=== PATIENT | female | born 1965 | race Caucasian/White ===

== ENCOUNTER 2021-08-30 11:15 | Inpatient (IN) | payer MEDICAID ==
[2021-08-30] MEDS: INSULIN LISPRO 100 UNIT/ML SUB-Q SCH (22:00)
--- NOTE | 2021-08-31 07:36 | History and Physical Report ---
GP History & Physical - History of Present Illness Date of admission: 08/30/21 Date of Examination: 08/31/21 Reason for Admission: Danger to self Chief Complaint: Delusional/paranoid/ off meds History of Present Illness: Marii Ceja is a 56 year old female with history of Bipolar, Schizophrenia who was admitted on 1012 from [facility] for delusions and paranoia. In my interview with the patient, the patient presents with some confusion and paranoid. The patient states " I'm spiritual counseling, if you force me to see psychiatrist I'll matty you and my transactional attorney knows it." When asked why she went to the ED she states I 'm here because I need my prescriptions; my daughter took me to the ED. Per Note: " The patient has been off medications for over a month and has been delusional and paranoid; patient's psychiatrist stopped her Zyprexa about a month ago stating she has been on it for too long." The patient denies any current suicidal/homicidal ideation and denies hallucinations. PAST PSYCHIATRIC HISTORY Diagnoses: Bipolar, Schizophrenia Suicide attempts or Self-harm behavior: Denies Prior psychiatric hospitalizations: Yes Substance Abuse history: Denies Previous psychiatric medications tried: Unable to recall Outpatient treatment: Denied SOCIAL HISTORY Marital Status: Living Arrangements: Lives with daughter Employment Status: Disabled Access to guns/weapons: SSI Education:GED History of Abuse: Denied Legal History: None reported REVIEW OF SYSTEMS Constitutional: Negative for weight loss ENT: Negative for stridor Respiratory: Negative for cough or hemoptysis All other systems reviewed and are negative MENTAL STATUS EXAMINATION General Appearance and Behavior: Age appropriate, dressed appropriately, calm and uncooperative Cooperation: cooperative Psychomotor Behavior: psychomotor normal Mood: angry/ paranoid Affect and affective range: congruent with stated mood Thought Process: disorganized Thought Content: Not suicidal Speech: Normal volume, Regular rate and rhythm, Intellectual Functioning: Average Suicidal Ideation:Denies Homicidal Ideation: denies Hallucinations:Denies Delusions: None elicited Impulse Control: Unimpaired Insight and Judgment: limited insight and poor judgment, Memory: Normal Attention: divided Orientation: Alert, oriented Assessment and Plan (1)Schizophrenia-F20.9 (2) Treatment Plan Patient admitted for inpatient psychiatric evaluation, medication adjustment and close monitoring The patient's behavior, mood, sleep and appetite will be closely monitored. Patient enrolled in individual and group therapeutic sessions and encouraged to attend. Patient provided with a safe and structured environment. Patient's physical health needs will be addressed by the Hospitalist. Hospitalist Consulted Labs including CBC, CMP, Lipid profile and Hemoglobin A1C levels ordered for baseline reference Social Assessment will be completed and the Plane Tableman will work with patient and family to ensure a suitable and safe disposition Medication adjustment will be made as clinically indicated Restarted home meds Usual Wellness Anabaptist/Preservation: - Start Trazodone 50 mg po QHS & 50 mg po QHS PRN between 10 PM & 2 AM for insomnia - Start Melatonin 5 mg po QHS to promote circadian rhythm The patient agreed on the treatment plan, understood the risk, benefit, alternative treatment, potential consequence of no treatment, and gave informed consent. Estimated days: 7 Post hospital care: primary care provider, psychiatric provider Case staffed with Dr. Holbrook Medications and Allergies Medications and Allergies Allergies Allergy/AdvReac Type Severity Reaction Status Date / Time No Known Allergies Allergy Unverified 08/30/21 13:37 Home Medications Medication Instructions Recorded Confirmed Last Taken Type Atorvastatin [Lipitor Tab] 40 mg PO DAILY 08/31/21 08/31/21 Unknown History Insulin Glargine [Lantus VIAL] 40 units SUB-Q QHS 08/31/21 08/31/21 Unknown History Liraglutide 1.8 mg SUB-Q DAILY 08/31/21 08/31/21 Unknown History Metformin (Glucophage) 850 mg PO BID 08/31/21 08/31/21 Unknown History Metoprolol [Lopressor TAB] 50 mg PO BID 08/31/21 08/31/21 Unknown History Omeprazole Magnesium [PriLOSEC Otc] 40 mg PO QDAY 08/31/21 08/31/21 Unknown History Active Meds: Active Medications Insulin Human Lispro (Insulin Lispro 100 Unit/Ml) 0 unit SUB-Q [facility]; Protocol Last Admin: 08/30/21 22:00 Dose: 3 unit Documented by: Results - Results Labs/Vitals: Laboratory Last Values POC Glucose 281 mg/dL (70-105) H 08/31/21 07:08 Last Vital Signs Temp 99.3 F 08/30/21 22:00 Pulse 92 H 08/30/21 22:00 Resp 18 08/30/21 22:00 BP 136/93 08/30/21 22:00 Pulse Ox 97 08/30/21 22:00 Physical Examination - Constitutional Vitals: Vital Signs Temp Pulse Resp BP Pulse Ox 99.3 F 92 H 18 136/93 97 08/30/21 22:00 08/30/21 22:00 08/30/21 22:00 08/30/21 22:00 08/30/21 22:00 Temperature -Last 24 Hours Temperature 99.3 F Mental Status Exam - Vital signs Last Vital Signs Temp 99.3 F 08/30/21 22:00 Pulse 92 H 08/30/21 22:00 Resp 18 08/30/21 22:00 BP 136/93 08/30/21 22:00 Pulse Ox 97 08/30/21 22:00 Physician Certification - Certification Statement Physician Certification Statement: This is an acknowledgement statement that MARII CEJA is a 56 year old F who requires inpatient psychiatric admission for treatment which could reasonably be expected to improve the patient's condition for Estimated period of time patient will need to remain in the hospital: [ ] Plan for post-hospital care: [ ]
[2021-08-31] MEDS: INSULIN LISPRO 100 UNIT/ML SUB-Q SCH ×4 (08:24→21:35)
[2021-08-31] MEDS: metFORMIN 850 MG TAB PO SCH ×2 (08:25→19:59)
[2021-08-31] MEDS ORDERED: PANTOPRAZOLE 40 MG TAB PO SCH (10:00)
[2021-08-31] MEDS ORDERED: METFORMIN 850 MG PO SCH (10:00)
[2021-08-31] MEDS ORDERED: LIRAGLUTIDE 1.8 MG SUB-Q SCH (10:00)
[2021-08-31] MEDS ORDERED: NON-FORMULARY EACH (Omeprazole Magnesium [Prilosec Otc] 20 MG Tablet.Dr) PO SCH (10:00)
[2021-08-31] MEDS ORDERED: ACETAMINOPHEN 325 MG TAB PO PRN (11:00)
[2021-08-31] MEDS: METOPROLOL TARTRATE 50 MG TAB PO SCH ×2 (11:16→21:35)
--- NOTE | 2021-08-31 13:27 | Progress Note ---
History Interval history: 56-year-old female with past medical history of type 2 diabetes and hypertension presenting with complaint of audio/visual hallucinations. Per documentation and patient, patient has been off of psychiatric medications for approximately 1 month. On my encounter patient did not have acute complaints except for headach e. She states that she gets tension headaches in the posterior aspect of her head periodically. She usually usually does Tylenol and her symptoms is[place]. Remainder of ROS negative for nausea/vomiting/diarrhea, chest pain, shortness of breath, abdominal pain, change in bowel habits, peripheral nerve pain. PMHx: Type 2 diabetes, hypertension PSHx: Tubal ligation FHx: Reviewed noncontributory SHx: Tobacco use-denies ETOH Use-denies Recreational Drug Use-denies Occupation-unemployed PCP-Dr. Zavala Hospitalist Physical - Physical exam Narrative exam: Physical Exam: VITAL SIGNS: Reviewed. GENERAL: The patient appears normally developed, Vital signs as documented. HEAD: No signs of head trauma. EYES: Pupils are equal. Extraocular motions intact. EARS: Hearing grossly intact. MOUTH: Oropharynx is normal. NECK: No adenopathy, no JVD. CHEST: Chest with clear breath sounds bilaterally. No wheezes, rales, or rhonchi. CARDIAC: Regular rate and rhythm. S1 and S2, without murmurs, gallops, or rubs. VASCULAR: No Edema. Peripheral pulses normal and equal in all extremities. ABDOMEN: Soft, non tender and non distended. No rebound or guarding, and no masses palpated. Bowel Sounds normal. MUSCULOSKELETAL: Good range of motion of all major joints. Extremities without clubbing, cyanosis or edema. NEUROLOGIC EXAM: Alert although orientation could not be verified as patient withdrawn no focal sensory or strength deficits. PSYCHIATRIC: Mood normal. SKIN: detail exam as documented in skin assessment - Constitutional Vitals: Temp Pulse Resp BP Pulse Ox 99.0 F 97 H 18 129/72 100 08/31/21 10:08 08/31/21 11:16 08/31/21 11:09 08/31/21 11:16 08/31/21 10:08 Results - Labs Labs: Laboratory Last Values POC Glucose 282 mg/dL (70-105) H 08/31/21 11:20 Zimmerman/IV: Voiding Method Toilet Active Medications - Current Medications Current Medications: Generic Name Dose Route Start Last Admin Trade Name Freq PRN Reason Stop Dose Admin Acetaminophen 650 mg 08/31/21 11:00 08/31/21 11:09 Acetaminophen 325 Mg Tab PO 650 mg Q6H PRN Administration Pain, Mild (1-3) Atorvastatin Calcium 40 mg 08/31/21 22:00 Atorvastatin 40 Mg Tab PO QHS [facility] Insulin Glargine 40 units 08/31/21 22:00 Insulin Glargine 100 Units/Ml SUB-Q QHS [facility] Insulin Human Lispro 0 unit 08/30/21 22:00 08/31/21 12:31 Insulin Lispro 100 Unit/Ml SUB-Q 4 unit ACHS [facility] Administration Protocol Metformin HCl 850 mg 08/31/21 08:30 08/31/21 08:25 Metformin 850 Mg Tab PO 850 mg BIDDIAB DES Administration Metoprolol Tartrate 50 mg 08/31/21 10:00 08/31/21 11:16 Metoprolol Tartrate 50 Mg Tab PO 50 mg BID DES Administration Miscellaneous Medication 1.8 mg 08/31/21 10:00 Liraglutide SUB-Q DAILY DES Olanzapine 7.5 mg 08/31/21 22:00 Olanzapine 7.5 Mg Tab PO QHS [facility] Pantoprazole Sodium 40 mg 08/31/21 10:00 08/31/21 11:17 Pantoprazole 40 Mg Tab PO 08/31/21 17:00 40 mg DAILY DES Administration Pantoprazole Sodium 40 mg 09/01/21 07:30 Pantoprazole 40 Mg Tab PO DAILY@0730 [facility]
--- NOTE | 2021-08-31 13:28 | Consultation ---
History of Present Illness - Reason for Consult Consult date: 08/31/21 Medical management Requesting physician: EUGENIA PAUL - History of Present Illness 56-year-old female with past medical history of type 2 diabetes and hypertension presenting with complaint of audio/visual hallucinations. Per documentation and patient, patient has been off of psychiatric medications for approximately 1 month. Internal medicine service consulted for medical management of patient chronic conditions. On my encounter patient did not have acute complaints except for headache. She states that she gets tension headaches in the posterior aspect of her head periodically. She usually usually does Tylenol and her symptoms is[place]. Remainder of ROS negative for nausea/vomiting/diarrhea, chest pain, shortness of breath, abdominal pain, change in bowel habits, periphe ral nerve pain. PMHx: Type 2 diabetes, hypertension PSHx: Tubal ligation FHx: Reviewed noncontributory SHx: Tobacco use-denies ETOH Use-denies Recreational Drug Use-denies Occupation-unemployed PCP-Dr. Zavala Past History Past Medical History: diabetes, hypertension Past Surgical History: Other (Tubal ligation) Social history: lives with family (Daughter and her family) Family history: no significant family history Medications and Allergies Allergies Allergy/AdvReac Type Severity Reaction Status Date / Time No Known Allergies Allergy Unverified 08/30/21 13:37 Home Medications Medication Instructions Recorded Confirmed Last Taken Type Atorvastatin [Lipitor Tab] 40 mg PO DAILY 08/31/21 08/31/21 Unknown History Insulin Glargine [Lantus VIAL] 40 units SUB-Q QHS 08/31/21 08/31/21 Unknown History Liraglutide 1.8 mg SUB-Q DAILY 08/31/21 08/31/21 Unknown History Metformin (Glucophage) 850 mg PO BID 08/31/21 08/31/21 Unknown History Metoprolol [Lopressor TAB] 50 mg PO BID 08/31/21 08/31/21 Unknown History Omeprazole Magnesium [PriLOSEC Otc] 40 mg PO QDAY 08/31/21 08/31/21 Unknown History Active Meds: Active Medications Acetaminophen (Acetaminophen 325 Mg Tab) 650 mg PO Q6H PRN PRN Reason: Pain, Mild (1-3) Last Admin: 08/31/21 11:09 Dose: 650 mg Documented by: Atorvastatin Calcium (Atorvastatin 40 Mg Tab) 40 mg PO QHS DES Insulin Glargine (Insulin Glargine 100 Units/Ml) 40 units SUB-Q QHS [facility] Insulin Human Lispro (Insulin Lispro 100 Unit/Ml) 0 unit SUB-Q ACHS [facility]; Protocol Last Admin: 08/31/21 12:31 Dose: 4 unit Documented by: Metformin HCl (Metformin 850 Mg Tab) 850 mg PO BIDDIAB [facility] Last Admin: 08/31/21 08:25 Dose: 850 mg Documented by: Metoprolol Tartrate (Metoprolol Tartrate 50 Mg Tab) 50 mg PO BID [facility] Last Admin: 08/31/21 11:16 Dose: 50 mg Documented by: Miscellaneous Medication (Liraglutide) 1.8 mg SUB-Q DAILY [facility] Olanzapine (Olanzapine 7.5 Mg Tab) 7.5 mg PO QHS [facility] Pantoprazole Sodium (Pantoprazole 40 Mg Tab) 40 mg PO DAILY [facility] Stop: 08/31/21 17:00 Last Admin: 08/31/21 11:17 Dose: 40 mg Documented by: Pantoprazole Sodium (Pantoprazole 40 Mg Tab) 40 mg PO DAILY@0730 [facility] Review of Systems All systems: negative (Headache) Exam - Physical Exam Narrative exam: Physical Exam: VITAL SIGNS: Reviewed. GENERAL: The patient appears normally developed, Vital signs as documented. HEAD: No signs of head trauma. EYES: Pupils are equal. Extraocular motions intact. EARS: Hearing grossly intact. MOUTH: Oropharynx is normal. NECK: No adenopathy, no JVD. CHEST: Chest with clear breath sounds bilaterally. No wheezes, rales, or rhonchi. CARDIAC: Regular rate and rhythm. S1 and S2, without murmurs, gallops, or rubs. VASCULAR: No Edema. Peripheral pulses normal and equal in all extremities. ABDOMEN: Soft, non tender and non distended. No rebound or guarding, and no masses palpated. Bowel Sounds normal. MUSCULOSKELETAL: Good range of motion of all major joints. Extremities without clubbing, cyanosis or edema. NEUROLOGIC EXAM: Alert and oriented x4. No focal sensory or strength deficits. PSYCHIATRIC: Mood normal. SKIN: detail exam as documented in skin assessment - Constitutional Vitals: Temp Pulse Resp BP Pulse Ox 99.0 F 97 H 18 129/72 100 08/31/21 10:08 08/31/21 11:16 08/31/21 11:09 08/31/21 11:16 08/31/21 10:08 Results - Labs Labs: Abnormal lab results 08/30/21 08/31/21 08/31/21 Range/Units 20:53 07:08 11:20 POC Glucose 213 H 281 H 282 H (70-105) mg/dL Assessment and Plan #Bipolar disorder #Schizophrenia #Hypertension #Type 2 diabetes on insulin #Tension headache #GERD #Hyperlipidemia Plan Psychiatric medication management per inpatient psych service Monitor blood pressure daily Accu-Cheks ACHS -Resume metoprolol 50 mg p.o. twice daily Resume home Protonix 40 mg daily Resume home atorvastatin 40 mg nightly Resume home Lantus 40 units nightly and Victoza 1.8 mg subcu daily -Sliding scale coverage Monitor QTC Tylenol ordered as needed for headachew
[2021-08-31 18:29] LABS: Basophils % (Auto) 0.4 % (0.0-1.8); Eosinophils # (Auto) 0.1 K/mm3 (0.0-0.4); Eosinophils % (Auto) 1.4 % (0.0-4.3); Lymphocytes # (Auto) 1.8 K/mm3 (1.2-5.4); Lymphocytes % (Auto) 26.2 % (13.4-35.0); Mean Corpuscular HGB Conc 30 % (30-34); Mean Corpuscular Volume 85 fl (79-97); Monocytes # (Auto) 0.5 K/mm3 (0.0-0.8); Monocytes % (Auto) 7.2 % (0.0-7.3); Platelet Count 305 K/mm3 (140-440); Red Blood Count 4.99 M/mm3 (3.65-5.03); Red Cell Distribution Width 14.2 % (13.2-15.2)
[2021-08-31 18:30] LABS: Hematocrit 42.5 % (30.3-42.9); Hemoglobin 12.9 gm/dl (10.1-14.3)
[2021-08-31 18:54] LABS: Alanine Aminotransferase 57 units/L (7-56); BUN/Creatinine Ratio 15; Blood Urea Nitrogen 12 mg/dL (7-17); Calcium 9.1 mg/dL (8.4-10.2); Hemolysis Index 7
[2021-08-31 19:35] LABS: Hepatitis C Virus Antibody Non-Reactive (NonReactive)
[2021-08-31 20:12] LABS: Hepatitis B Surface Antigen Nonreactive (Negative)
[2021-08-31] MEDS: INSULIN GLARGINE 100 UNITS/ML SUB-Q SCH (21:35)
[2021-09-01] MEDS: metFORMIN 850 MG TAB PO SCH ×2 (07:36→17:22)
[2021-09-01] MEDS: INSULIN LISPRO 100 UNIT/ML SUB-Q SCH ×4 (07:36→22:03)
[2021-09-01] MEDS: PANTOPRAZOLE 40 MG TAB PO SCH (07:36)
--- NOTE | 2021-09-01 07:59 | Progress Note ---
Subjective Date of service: 09/01/21 Subjective Comment: 09/01/2021: Patient was seen withdrawn and isolative. She states she is fine. The patient denies any current suicidal/homicidal ideation and denies hallucinations. REVIEW OF SYSTEMS Constitutional: Negative for weight loss ENT: Negative for stridor Respiratory: Negative for cough or hemoptysis All other systems reviewed and are negative MENTAL STATUS EXAMINATION General Appearance and Behavior: Age appropriate, dressed appropriately, calm and uncooperative Cooperation: cooperative Psychomotor Behavior: psychomotor normal Mood: angry/ paranoid Affect and affective range: congruent with stated mood Thought Process: disorganized Thought Content: Not suicidal Speech: Normal volume, Regular rate and rhythm, Intellectual Functioning: Average Suicidal Ideation:Denies Homicidal Ideation: denies Hallucinations:Denies Delusions: None elicited Impulse Control: Unimpaired Insight and Judgment: limited insight and poor judgment, Memory: Normal Attention: divided Orientation: Alert, oriented Assessment and Plan (1)Schizophrenia-F20.9 (2) Treatment Plan Patient admitted for inpatient psychiatric evaluation, medication adjustment and close monitoring The patient's behavior, mood, sleep and appetite will be closely monitored. Patient enrolled in individual and group therapeutic sessions and encouraged to attend. Patient provided with a safe and structured environment. Patient's physical health needs will be addressed by the Hospitalist. Hospitalist Consulted Labs including CBC, CMP, Lipid profile and Hemoglobin A1C levels ordered for baseline reference Social Assessment will be completed and the Pilates Coordinator will work with patient and family to ensure a suitable and safe disposition Medication adjustment will be made as clinically indicated Restarted home meds Usual Wellness Lutheran/Preservation: - Start Trazodone 50 mg po QHS & 50 mg po QHS PRN between 10 PM & 2 AM for insomnia - Start Melatonin 5 mg po QHS to promote circadian rhythm The patient agreed on the treatment plan, understood the risk, benefit, alternative treatment, potential consequence of no treatment, and gave informed consent. Estimated days: 7 Post hospital care: primary care provider, psychiatric provider Case staffed with Dr. Holbrook Medications and Allergies Medications and Allergies Allergies Allergy/AdvReac Type Severity Reaction Status Date / Time No Known Allergies Allergy Unverified 08/30/21 13:37 Home Medications Medication Instructions Recorded Confirmed Last Taken Type Atorvastatin [Lipitor Tab] 40 mg PO DAILY 08/31/21 08/31/21 Unknown History Insulin Glargine [Lantus VIAL] 40 units SUB-Q QHS 08/31/21 08/31/21 Unknown History Liraglutide 1.8 mg SUB-Q DAILY 08/31/21 08/31/21 Unknown History Metformin (Glucophage) 850 mg PO BID 08/31/21 08/31/21 Unknown History Metoprolol [Lopressor TAB] 50 mg PO BID 08/31/21 08/31/21 Unknown History Omeprazole Magnesium [PriLOSEC Otc] 40 mg PO QDAY 08/31/21 08/31/21 Unknown History Active Meds: Active Medications Acetaminophen (Acetaminophen 325 Mg Tab) 650 mg PO Q6H PRN PRN Reason: Pain, Mild (1-3) Last Admin: 08/31/21 11:09 Dose: 650 mg Documented by: Atorvastatin Calcium (Atorvastatin 40 Mg Tab) 40 mg PO QHS [facility] Last Admin: 08/31/21 21:34 Dose: 40 mg Documented by: Insulin Glargine (Insulin Glargine 100 Units/Ml) 40 units SUB-Q QHS [facility] Last Admin: 08/31/21 21:35 Dose: 40 units Documented by: Insulin Human Lispro (Insulin Lispro 100 Unit/Ml) 0 unit SUB-Q [facility]; Protocol Last Admin: 09/01/21 07:36 Dose: 4 unit Documented by: Metformin HCl (Metformin 850 Mg Tab) 850 mg PO BIDDIAB [facility] Last Admin: 09/01/21 07:36 Dose: 850 mg Documented by: Metoprolol Tartrate (Metoprolol Tartrate 50 Mg Tab) 50 mg PO BID [facility] Last Admin: 08/31/21 21:35 Dose: 50 mg Documented by: Miscellaneous Medication (Liraglutide) 1.8 mg SUB-Q DAILY [facility] Olanzapine (Olanzapine 7.5 Mg Tab) 7.5 mg PO QHS [facility] Last Admin: 08/31/21 21:34 Dose: 7.5 mg Documented by: Pantoprazole Sodium (Pantoprazole 40 Mg Tab) 40 mg PO DAILY@0730 [facility] Last Admin: 09/01/21 07:36 Dose: 40 mg Documented by: Results - Results Labs/Vitals: Laboratory Last Values WBC 7.0 K/mm3 (4.5-11.0) 08/31/21 18:03 RBC 4.99 M/mm3 (3.65-5.03) 08/31/21 18:03 Hgb 12.9 gm/dl (10.1-14.3) 08/31/21 18:03 Hct 42.5 % (30.3-42.9) 08/31/21 18:03 MCV 85 fl (79-97) 08/31/21 18:03 MCH 26 pg (28-32) L 08/31/21 18:03 MCHC 30 % (30-34) 08/31/21 18:03 RDW 14.2 % (13.2-15.2) 08/31/21 18:03 Plt Count 305 K/mm3 (140-440) 08/31/21 18:03 Lymph % (Auto) 26.2 % (13.4-35.0) 08/31/21 18:03 Grayson % (Auto) 7.2 % (0.0-7.3) 08/31/21 18:03 Eos % (Auto) 1.4 % (0.0-4.3) 08/31/21 18:03 Baso % (Auto) 0.4 % (0.0-1.8) 08/31/21 18:03 Lymph # (Auto) 1.8 K/mm3 (1.2-5.4) 08/31/21 18:03 Grayson # (Auto) 0.5 K/mm3 (0.0-0.8) 08/31/21 18:03 Eos # (Auto) 0.1 K/mm3 (0.0-0.4) 08/31/21 18:03 Baso # (Auto) 0.0 K/mm3 (0.0-0.1) 08/31/21 18:03 Seg Neutrophils % 64.8 % (40.0-70.0) 08/31/21 18:03 Seg Neutrophils # 4.5 K/mm3 (1.8-7.7) 08/31/21 18:03 Sodium 130 mmol/L (137-145) L 08/31/21 18:03 Potassium 4.5 mmol/L (3.6-5.0) 08/31/21 18:03 Chloride 95.2 mmol/L (98-107) L 08/31/21 18:03 Carbon Dioxide 22 mmol/L (22-30) 08/31/21 18:03 Anion Gap 17 mmol/L 08/31/21 18:03 BUN 12 mg/dL (7-17) 08/31/21 18:03 Creatinine 0.8 mg/dL (0.6-1.2) 08/31/21 18:03 Estimated GFR > 60 ml/min 08/31/21 18:03 BUN/Creatinine Ratio 15 % 08/31/21 18:03 Glucose 441 mg/dL (65-100) H 08/31/21 18:03 POC Glucose 252 mg/dL (70-105) H 09/01/21 06:03 Hemoglobin A1c 10.8 % (4-6) H 08/31/21 18:03 Calcium 9.1 mg/dL (8.4-10.2) 08/31/21 18:03 Total Bilirubin 0.20 mg/dL (0.1-1.2) 08/31/21 18:03 AST 38 units/L (5-40) 08/31/21 18:03 ALT 57 units/L (7-56) H 08/31/21 18:03 Alkaline Phosphatase 116 units/L (35-129) 08/31/21 18:03 Total Protein 7.1 g/dL (6.3-8.2) 08/31/21 18:03 Albumin 4.0 g/dL (3.9-5) 08/31/21 18:03 Albumin/Globulin Ratio 1.3 % 08/31/21 18:03 TSH 2.870 mlU/mL (0.270-4.200) 08/31/21 18:03 Hepatitis A IgM Ab Non-reactive (NonReactive) 08/31/21 18:03 Hep Bs Antigen Nonreactive (Negative) 08/31/21 18:03 Hep B Core IgM Ab Non-reactive (NonReactive) 08/31/21 18:03 Hepatitis C Antibody Non-reactive (NonReactive) 08/31/21 18:03 Last Vital Signs Temp 99.0 F 08/31/21 10:08 Pulse 89 08/31/21 21:35 Resp 18 08/31/21 11:09 BP 144/76 08/31/21 21:35 Pulse Ox 100 08/31/21 10:08
[2021-09-01] MEDS: METOPROLOL TARTRATE 50 MG TAB PO SCH ×2 (09:34→21:38)
[2021-09-01] MEDS: DIVALPROEX DR 125 MG TAB PO SCH ×2 (17:22→21:37)
[2021-09-01] MEDS: INSULIN GLARGINE 100 UNITS/ML SUB-Q SCH (22:02)
[2021-09-02] MEDS: INSULIN LISPRO 100 UNIT/ML SUB-Q SCH ×4 (08:07→23:01)
[2021-09-02] MEDS: PANTOPRAZOLE 40 MG TAB PO SCH (08:08)
[2021-09-02] MEDS: metFORMIN 850 MG TAB PO SCH ×2 (08:09→16:55)
[2021-09-02] MEDS: METOPROLOL TARTRATE 50 MG TAB PO SCH ×2 (09:33→21:29)
[2021-09-02] MEDS: DIVALPROEX DR 125 MG TAB PO SCH ×2 (09:33→21:29)
--- NOTE | 2021-09-02 11:08 | Progress Note ---
Subjective Date of service: 09/02/21 Principal diagnosis: schizophrenia Subjective Comment: The patient was seen today. She is guarded and appears suspicious. She is short with her responses, and tells me she's only here to get back on her meds. She says "I don't need anything from you but my olanzapine." REVIEW OF SYSTEMS Constitutional: Negative for weight loss ENT: Negative for stridor Respiratory: Negative for cough or hemoptysis All other systems reviewed and are negative MENTAL STATUS EXAMINATION General Appearance and Behavior: Age appropriate, dressed appropriately, calm and uncooperative Cooperation: cooperative Psychomotor Behavior: psychomotor normal Mood: angry/ paranoid Affect and affective range: congruent with stated mood Thought Process: disorganized Thought Content: Not suicidal Speech: Normal volume, Regular rate and rhythm, Intellectual Functioning: Average Suicidal Ideation:Denies Homicidal Ideation: denies Hallucinations: Denies Delusions: None elicited Impulse Control: Unimpaired Insight and Judgment: limited insight and poor judgment, Memory: Normal Attention: divided Orientation: Alert, oriented Assessment and Plan (1)Schizophrenia-F20.9 Treatment Plan Patient admitted for inpatient psychiatric evaluation, medication adjustment and close monitoring The patient's behavior, mood, sleep and appetite will be closely monitored. Patient enrolled in individual and group therapeutic sessions and encouraged to attend. Patient provided with a safe and structured environment. Patient's physical health needs will be addressed by the Hospitalist. Hospitalist Consulted Labs including CBC, CMP, Lipid profile and Hemoglobin A1C levels ordered for baseline reference Social Assessment will be completed and the Manager Animation will work with micheline ent and family to ensure a suitable and safe disposition Medication adjustment will be made as clinically indicated Increased Olanzapine 10mg po daily Usual Wellness Temple/Preservation: - Start Trazodone 50 mg po QHS & 50 mg po QHS PRN between 10 PM & 2 AM for insomnia - Start Melatonin 5 mg po QHS to promote circadian rhythm The patient agreed on the treatment plan, understood the risk, benefit, alternative treatment, potential consequence of no treatment, and gave informed consent. Estimated days: 7 Post hospital care: primary care provider, psychiatric provider Case staffed with Dr. Holbrook Medications and Allergies Allergies Allergy/AdvReac Type Severity Reaction Status Date / Time No Known Allergies Allergy Unverified 08/30/21 13:37 Home Medications Medication Instructions Recorded Confirmed Last Taken Type Atorvastatin [Lipitor Tab] 40 mg PO DAILY 08/31/21 08/31/21 Unknown History Insulin Glargine [Lantus VIAL] 40 units SUB-Q QHS 08/31/21 08/31/21 Unknown History Liraglutide 1.8 mg SUB-Q DAILY 08/31/21 08/31/21 Unknown History Metformin (Glucophage) 850 mg PO BID 08/31/21 08/31/21 Unknown History Metoprolol [Lopressor TAB] 50 mg PO BID 08/31/21 08/31/21 Unknown History Omeprazole Magnesium [PriLOSEC Otc] 40 mg PO QDAY 08/31/21 08/31/21 Unknown History Active Meds: Active Medications Acetaminophen (Acetaminophen 325 Mg Tab) 650 mg PO Q6H PRN PRN Reason: Pain, Mild (1-3) Last Admin: 08/31/21 11:09 Dose: 650 mg Documented by: Atorvastatin Calcium (Atorvastatin 40 Mg Tab) 40 mg PO QHS [facility] Last Admin: 09/01/21 21:37 Dose: 40 mg Documented by: Divalproex Sodium (Divalproex Dr 125 Mg Tab) 125 mg PO BID [facility] Last Admin: 09/02/21 09:33 Dose: 125 mg Documented by: Insulin Glargine (Insulin Glargine 100 Units/Ml) 40 units SUB-Q QHS [facility] Last Admin: 09/01/21 22:02 Dose: 40 units Documented by: Insulin Human Lispro (Insulin Lispro 100 Unit/Ml) 0 unit SUB-Q [facility]; Protocol Last Admin: 09/02/21 08:07 Dose: 6 unit Documented by: Metformin HCl (Metformin 850 Mg Tab) 850 mg PO BIDDIAB [facility] Last Admin: 09/02/21 08:09 Dose: 850 mg Documented by: Metoprolol Tartrate (Metoprolol Tartrate 50 Mg Tab) 50 mg PO BID [facility] Last Admin: 09/02/21 09:33 Dose: 50 mg Documented by: Miscellaneous Medication (Liraglutide) 1.8 mg SUB-Q DAILY [facility] Olanzapine (Olanzapine 7.5 Mg Tab) 7.5 mg PO QHS [facility] Last Admin: 09/01/21 21:37 Dose: 7.5 mg Documented by: Pantoprazole Sodium (Pantoprazole 40 Mg Tab) 40 mg PO DAILY@0730 [facility] Last Admin: 09/02/21 08:08 Dose: 40 mg Documented by: Results - Results Labs/Vitals: Laboratory Last Values WBC 7.0 K/mm3 (4.5-11.0) 08/31/21 18:03 RBC 4.99 M/mm3 (3.65-5.03) 08/31/21 18:03 Hgb 12.9 gm/dl (10.1-14.3) 08/31/21 18:03 Hct 42.5 % (30.3-42.9) 08/31/21 18:03 MCV 85 fl (79-97) 08/31/21 18:03 MCH 26 pg (28-32) L 08/31/21 18:03 MCHC 30 % (30-34) 08/31/21 18:03 RDW 14.2 % (13.2-15.2) 08/31/21 18:03 Plt Count 305 K/mm3 (140-440) 08/31/21 18:03 Lymph % (Auto) 26.2 % (13.4-35.0) 08/31/21 18:03 [place] % (Auto) 7.2 % (0.0-7.3) 08/31/21 18:03 Eos % (Auto) 1.4 % (0.0-4.3) 08/31/21 18:03 Baso % (Auto) 0.4 % (0.0-1.8) 08/31/21 18:03 Lymph # (Auto) 1.8 K/mm3 (1.2-5.4) 08/31/21 18:03 [place] # (Auto) 0.5 K/mm3 (0.0-0.8) 08/31/21 18:03 Eos # (Auto) 0.1 K/mm3 (0.0-0.4) 08/31/21 18:03 Baso # (Auto) 0.0 K/mm3 (0.0-0.1) 08/31/21 18:03 Seg Neutrophils % 64.8 % (40.0-70.0) 08/31/21 18:03 Seg Neutrophils # 4.5 K/mm3 (1.8-7.7) 08/31/21 18:03 Sodium 130 mmol/L (137-145) L 08/31/21 18:03 Potassium 4.5 mmol/L (3.6-5.0) 08/31/21 18:03 Chloride 95.2 mmol/L (98-107) L 08/31/21 18:03 Carbon Dioxide 22 mmol/L (22-30) 08/31/21 18:03 Anion Gap 17 mmol/L 08/31/21 18:03 BUN 12 mg/dL (7-17) 08/31/21 18:03 Creatinine 0.8 mg/dL (0.6-1.2) 08/31/21 18:03 Estimated GFR > 60 ml/min 08/31/21 18:03 BUN/Creatinine Ratio 15 % 08/31/21 18:03 Glucose 441 mg/dL (65-100) H 08/31/21 18:03 POC Glucose 197 mg/dL (70-105) H 09/02/21 10:59 Hemoglobin A1c 10.8 % (4-6) H 08/31/21 18:03 Calcium 9.1 mg/dL (8.4-10.2) 08/31/21 18:03 Total Bilirubin 0.20 mg/dL (0.1-1.2) 08/31/21 18:03 AST 38 units/L (5-40) 08/31/21 18:03 ALT 57 units/L (7-56) H 08/31/21 18:03 Alkaline Phosphatase 116 units/L (35-129) 08/31/21 18:03 Total Protein 7.1 g/dL (6.3-8.2) 08/31/21 18:03 Albumin 4.0 g/dL (3.9-5) 08/31/21 18:03 Albumin/Globulin Ratio 1.3 % 08/31/21 18:03 TSH 2.870 mlU/mL (0.270-4.200) 08/31/21 18:03 Hepatitis A IgM Ab Non-reactive (NonReactive) 08/31/21 18:03 Hep Bs Antigen Nonreactive (Negative) 08/31/21 18:03 Hep B Core IgM Ab Non-reactive (NonReactive) 08/31/21 18:03 Hepatitis C Antibody Non-reactive (NonReactive) 08/31/21 18:03 Last Vital Signs Temp 98.5 F 09/01/21 19:54 Pulse 89 09/02/21 06:09 Resp 18 09/02/21 06:09 BP 106/73 09/02/21 06:09 Pulse Ox 97 09/02/21 06:09
[2021-09-02] MEDS: INSULIN GLARGINE 100 UNITS/ML SUB-Q SCH (23:01)
[2021-09-03] MEDS: INSULIN LISPRO 100 UNIT/ML SUB-Q SCH ×4 (08:55→21:17)
--- NOTE | 2021-09-03 10:51 | Progress Note ---
Subjective Date of service: 09/03/21 Principal diagnosis: schizophrenia Subjective Comment: The patient was seen today. She is calm today, and doesn't appear to be suspicious. She is asking about her prescriptions upon discharge. She denies SI/HI or hallucinations of any kind. REVIEW OF SYSTEMS Constitutional: Negative for weight loss ENT: Negative for stridor Respiratory: Negative for cough or hemoptysis All other systems reviewed and are negative MENTAL STATUS EXAMINATION General Appearance and Behavior: Age appropriate, dressed appropriately, calm and uncooperative Cooperation: cooperative Psychomotor Behavior: psychomotor normal Mood: angry/ paranoid Affect and affective range: congruent with stated mood Thought Process: disorganized Thought Content: Not suicidal Speech: Normal volume, Regular rate and rhythm, Intellectual Functioning: Average Suicidal Ideation:Denies Homicidal Ideation: denies Hallucinations: Denies Delusions: None elicited Impulse Control: Unimpaired Insight and Judgment: limited insight and poor judgment, Memory: Normal Attention: divided Orientation: Alert, oriented Assessment and Plan (1)Schizophrenia-F20.9 Treatment Plan Patient admitted for inpatient psychiatric evaluation, medication adjustment and close monitoring The patient's behavior, mood, sleep and appetite will be closely monitored. Patient enrolled in individual and group therapeutic sessions and encouraged to attend. Patient provided with a safe and structured environment. Patient's physical health needs will be addressed by the Hospitalist. Hospitalist Consulted Labs including CBC, CMP, Lipid profile and Hemoglobin A1C levels ordered for baseline reference Social Assessment will be completed and the Commercial Kitchen Service Technician will work with patient and family to ensure a suitable and safe disposition Medication adjustment will be made as clinically indicated Increased Olanzapine 10mg po daily yesterday No changes today Usual Wellness Jain/Preservation: - Start Trazodone 50 mg po QHS & 50 mg po QHS PRN between 10 PM & 2 AM for insomnia - Start Melatonin 5 mg po QHS to promote circadian rhythm The patient agreed on the treatment plan, understood the risk, benefit, alternative treatment, potential consequence of no treatment, and gave informed consent. Estimated days: 3 Post hospital care: primary care provider, psychiatric provider Case staffed with Dr. Holbrook Medications and Allergies Allergies Allergy/AdvReac Type Severity Reaction Status Date / Time No Known Allergies Allergy Unverified 08/30/21 13:37 Home Medications Medication Instructions Recorded Confirmed Last Taken Type Atorvastatin [Lipitor Tab] 40 mg PO DAILY 08/31/21 08/31/21 Unknown History Insulin Glargine [Lantus VIAL] 40 units SUB-Q QHS 08/31/21 08/31/21 Unknown History Liraglutide 1.8 mg SUB-Q DAILY 08/31/21 08/31/21 Unknown History Metformin (Glucophage) 850 mg PO BID 08/31/21 08/31/21 Unknown History Metoprolol [Lopressor TAB] 50 mg PO BID 08/31/21 08/31/21 Unknown History Omeprazole Magnesium [PriLOSEC Otc] 40 mg PO QDAY 08/31/21 08/31/21 Unknown History Active Meds: Active Medications Acetaminophen (Acetaminophen 325 Mg Tab) 650 mg PO Q6H PRN PRN Reason: Pain, Mild (1-3) Last Admin: 08/31/21 11:09 Dose: 650 mg Documented by: Atorvastatin Calcium (Atorvastatin 40 Mg Tab) 40 mg PO QHS [facility] Last Admin: 09/02/21 21:29 Dose: 40 mg Documented by: Divalproex Sodium (Divalproex Dr 125 Mg Tab) 125 mg PO BID [facility] Last Admin: 09/02/21 21:29 Dose: 125 mg Documented by: Insulin Glargine (Insulin Glargine 100 Units/Ml) 40 units SUB-Q QHS [facility] Last Admin: 09/02/21 23:01 Dose: 40 units Documented by: Insulin Human Lispro (Insulin Lispro 100 Unit/Ml) 0 unit SUB-Q [facility]; Protocol Last Admin: 09/02/21 23:01 Dose: 3 unit Documented by: Metformin HCl (Metformin 850 Mg Tab) 850 mg PO BIDDIAB [facility] Last Admin: 09/02/21 16:55 Dose: 850 mg Documented by: Metoprolol Tartrate (Metoprolol Tartrate 50 Mg Tab) 50 mg PO BID [facility] Last Admin: 09/02/21 21:29 Dose: 50 mg Documented by: Miscellaneous Medication (Liraglutide) 1.8 mg SUB-Q DAILY [facility] Olanzapine (Olanzapine 10 Mg Tab) 10 mg PO QHS [facility] Last Admin: 09/02/21 21:30 Dose: 10 mg Documented by: Pantoprazole Sodium (Pantoprazole 40 Mg Tab) 40 mg PO DAILY@0730 [facility] Last Admin: 09/02/21 08:08 Dose: 40 mg Documented by: Results - Results Labs/Vitals: Laboratory Last Values WBC 7.0 K/mm3 (4.5-11.0) 08/31/21 18:03 RBC 4.99 M/mm3 (3.65-5.03) 08/31/21 18:03 Hgb 12.9 gm/dl (10.1-14.3) 08/31/21 18:03 Hct 42.5 % (30.3-42.9) 08/31/21 18:03 MCV 85 fl (79-97) 08/31/21 18:03 MCH 26 pg (28-32) L 08/31/21 18:03 MCHC 30 % (30-34) 08/31/21 18:03 RDW 14.2 % (13.2-15.2) 08/31/21 18:03 Plt Count 305 K/mm3 (140-440) 08/31/21 18:03 Lymph % (Auto) 26.2 % (13.4-35.0) 08/31/21 18:03 [place] % (Auto) 7.2 % (0.0-7.3) 08/31/21 18:03 Eos % (Auto) 1.4 % (0.0-4.3) 08/31/21 18:03 Baso % (Auto) 0.4 % (0.0-1.8) 08/31/21 18:03 Lymph # (Auto) 1.8 K/mm3 (1.2-5.4) 08/31/21 18:03 [place] # (Auto) 0.5 K/mm3 (0.0-0.8) 08/31/21 18:03 Eos # (Auto) 0.1 K/mm3 (0.0-0.4) 08/31/21 18:03 Baso # (Auto) 0.0 K/mm3 (0.0-0.1) 08/31/21 18:03 Seg Neutrophils % 64.8 % (40.0-70.0) 08/31/21 18:03 Seg Neutrophils # 4.5 K/mm3 (1.8-7.7) 08/31/21 18:03 Sodium 130 mmol/L (137-145) L 08/31/21 18:03 Potassium 4.5 mmol/L (3.6-5.0) 08/31/21 18:03 Chloride 95.2 mmol/L (98-107) L 08/31/21 18:03 Carbon Dioxide 22 mmol/L (22-30) 08/31/21 18:03 Anion Gap 17 mmol/L 08/31/21 18:03 BUN 12 mg/dL (7-17) 08/31/21 18:03 Creatinine 0.8 mg/dL (0.6-1.2) 08/31/21 18:03 Estimated GFR > 60 ml/min 08/31/21 18:03 BUN/Creatinine Ratio 15 % 08/31/21 18:03 Glucose 441 mg/dL (65-100) H 08/31/21 18:03 POC Glucose 106 mg/dL (70-105) H 09/03/21 08:22 Hemoglobin A1c 10.8 % (4-6) H 08/31/21 18:03 Calcium 9.1 mg/dL (8.4-10.2) 08/31/21 18:03 Total Bilirubin 0.20 mg/dL (0.1-1.2) 08/31/21 18:03 AST 38 units/L (5-40) 08/31/21 18:03 ALT 57 units/L (7-56) H 08/31/21 18:03 Alkaline Phosphatase 116 units/L (35-129) 08/31/21 18:03 Total Protein 7.1 g/dL (6.3-8.2) 08/31/21 18:03 Albumin 4.0 g/dL (3.9-5) 08/31/21 18:03 Albumin/Globulin Ratio 1.3 % 08/31/21 18:03 TSH 2.870 mlU/mL (0.270-4.200) 08/31/21 18:03 Hepatitis A IgM Ab Non-reactive (NonReactive) 08/31/21 18:03 Hep Bs Antigen Nonreactive (Negative) 08/31/21 18:03 Hep B Core IgM Ab Non-reactive (NonReactive) 08/31/21 18:03 Hepatitis C Antibody Non-reactive (NonReactive) 08/31/21 18:03 Last Vital Signs Temp 98.5 F 09/01/21 19:54 Pulse 89 09/02/21 21:29 Resp 18 09/02/21 06:09 BP 153/78 09/02/21 21:29 Pulse Ox 97 09/02/21 06:09
[2021-09-03] MEDS: metFORMIN 850 MG TAB PO SCH ×2 (10:54→16:46)
[2021-09-03] MEDS: DIVALPROEX DR 125 MG TAB PO SCH ×2 (10:54→21:17)
[2021-09-03] MEDS: PANTOPRAZOLE 40 MG TAB PO SCH (10:54)
[2021-09-03] MEDS: METOPROLOL TARTRATE 50 MG TAB PO SCH ×2 (11:01→21:17)
--- NOTE | 2021-09-03 12:14 | XRay Report ---
CHEST 1 VIEW, 09/03/2021 10:52 AM CLINICAL INFORMATION/INDICATION: Evaluate for TB COMPARISON: None. FINDINGS: SUPPORT DEVICES: None. HEART: The cardiac silhouette is normal in size. LUNGS/PLEURA: The lungs are clear of focal airspace disease or significant pleural effusion. ADDITIONAL FINDINGS: No additional acute findings. IMPRESSION: 1. No evidence of acute cardiopulmonary process. Signer Name: Ciera Rae MD Signed: 09/03/2021 12:10 PM Workstation Name: [email or web address]
[2021-09-03] MEDS: INSULIN GLARGINE 100 UNITS/ML SUB-Q SCH (22:17)
[2021-09-04] MEDS: INSULIN LISPRO 100 UNIT/ML SUB-Q SCH (07:43)
[2021-09-04] MEDS: PANTOPRAZOLE 40 MG TAB PO SCH (07:44)
[2021-09-04] MEDS: metFORMIN 850 MG TAB PO SCH (07:44)
[2021-09-04 09:34] VITALS: BP 170/77
[2021-09-04] MEDS: METOPROLOL TARTRATE 50 MG TAB PO SCH (09:35)
[2021-09-04] MEDS: DIVALPROEX DR 125 MG TAB PO SCH (09:35)
--- NOTE | 2021-09-04 10:04 | Discharge Summary ---
Providers - Providers Date of Admission: 08/30/21 18:54 Date of discharge: 09/04/21 Attending physician: DEYSI RODRIGUEZ MD 08/30/21 13:10 Consult to Physician [CONS] Routine Comment: Consulting Provider: DEYSI RODRIGUEZ Physician Instructions: Reason For Exam: Manage existing medical conditions Primary care physician: AUTOMOTIVE SALES ASSOCIATE Hospitalization Reason for admission: psychosis Admitting Diagnosis: F20.9 - SCHIZOPHRENIA, UNSPECIFIED Condition: Stable Hospital course: The patient was provided inpatient psychiatric treatment with safe and supportive care, medication adjustment, adverse effect monitoring, medical evaluations, medical treatments, assessment and psycho-education. The patient's mood, cognition, behavior, moral support are improved and stabilized. St the time of discharge, the patient had no endangering behavior and no debilitating adverse effects. The patient agreed on potential consequences of no treatment and gave informed consent. Disposition: 01 HOME / SELF CARE / HOMELESS Time spent for discharge: 35 Allergies/Adverse Reactions: Allergies No Known Allergies Allergy (Unverified 08/30/21 13:37) Vital Signs: Last Vital Signs Temp 98.6 F 09/04/21 09:00 Pulse 77 09/04/21 09:35 Resp 18 09/04/21 09:00 BP 170/77 09/04/21 09:35 Pulse Ox 98 09/04/21 09:00 Last Lab: Laboratory Last Values WBC 7.0 K/mm3 (4.5-11.0) 08/31/21 18:03 RBC 4.99 M/mm3 (3.65-5.03) 08/31/21 18:03 Hgb 12.9 gm/dl (10.1-14.3) 08/31/21 18:03 Hct 42.5 % (30.3-42.9) 08/31/21 18:03 MCV 85 fl (79-97) 08/31/21 18:03 MCH 26 pg (28-32) L 08/31/21 18:03 MCHC 30 % (30-34) 08/31/21 18:03 RDW 14.2 % (13.2-15.2) 08/31/21 18:03 Plt Count 305 K/mm3 (140-440) 08/31/21 18:03 Lymph % (Auto) 26.2 % (13.4-35.0) 08/31/21 18:03 [place] % (Auto) 7.2 % (0.0-7.3) 08/31/21 18:03 Eos % (Auto) 1.4 % (0.0-4.3) 08/31/21 18:03 Baso % (Auto) 0.4 % (0.0-1.8) 08/31/21 18:03 Lymph # (Auto) 1.8 K/mm3 (1.2-5.4) 08/31/21 18:03 [place] # (Auto) 0.5 K/mm3 (0.0-0.8) 08/31/21 18:03 Eos # (Auto) 0.1 K/mm3 (0.0-0.4) 08/31/21 18:03 Baso # (Auto) 0.0 K/mm3 (0.0-0.1) 08/31/21 18:03 Seg Neutrophils % 64.8 % (40.0-70.0) 08/31/21 18:03 Seg Neutrophils # 4.5 K/mm3 (1.8-7.7) 08/31/21 18:03 Sodium 130 mmol/L (137-145) L 08/31/21 18:03 Potassium 4.5 mmol/L (3.6-5.0) 08/31/21 18:03 Chloride 95.2 mmol/L (98-107) L 08/31/21 18:03 Carbon Dioxide 22 mmol/L (22-30) 08/31/21 18:03 Anion Gap 17 mmol/L 08/31/21 18:03 BUN 12 mg/dL (7-17) 08/31/21 18:03 Creatinine 0.8 mg/dL (0.6-1.2) 08/31/21 18:03 Estimated GFR > 60 ml/min 08/31/21 18:03 BUN/Creatinine Ratio 15 % 08/31/21 18:03 Glucose 441 mg/dL (65-100) H 08/31/21 18:03 POC Glucose 215 mg/dL (70-105) H 09/04/21 06:13 Hemoglobin A1c 10.8 % (4-6) H 08/31/21 18:03 Calcium 9.1 mg/dL (8.4-10.2) 08/31/21 18:03 Total Bilirubin 0.20 mg/dL (0.1-1.2) 08/31/21 18:03 AST 38 units/L (5-40) 08/31/21 18:03 ALT 57 units/L (7-56) H 08/31/21 18:03 Alkaline Phosphatase 116 units/L (35-129) 08/31/21 18:03 Total Protein 7.1 g/dL (6.3-8.2) 08/31/21 18:03 Albumin 4.0 g/dL (3.9-5) 08/31/21 18:03 Albumin/Globulin Ratio 1.3 % 08/31/21 18:03 TSH 2.870 mlU/mL (0.270-4.200) 08/31/21 18:03 Hepatitis A IgM Ab Non-reactive (NonReactive) 08/31/21 18:03 Hep Bs Antigen Nonreactive (Negative) 08/31/21 18:03 Hep B Core IgM Ab Non-reactive (NonReactive) 08/31/21 18:03 Hepatitis C Antibody Non-reactive (NonReactive) 08/31/21 18:03 Core Measure Documentation - Palliative Care Palliative Care/ Comfort Measures: Not Applicable - Core Measures Any of the following diagnoses?: none Exam - Constitutional Vitals: Temp Pulse Resp BP Pulse Ox 98.6 F 77 18 170/77 98 09/04/21 09:00 09/04/21 09:35 09/04/21 09:00 09/04/21 09:35 09/04/21 09:00 General appearance: Present: no acute distress - EENT Eyes: Present: PERRL, EOM intact ENT: hearing intact, clear oral mucosa - Neck Neck: Present: supple, normal ROM - Respiratory Respiratory effort: normal Plan Activity: advance as tolerated Weight Bearing Status: Weight Bear as Tolerated Care Plan Goals: maintain good and stable mental health Plan of Treatment: The patient should be compliant with medications, not to use drugs, and not to drink alcohol. The patient understands that if suicidal ideas, homicidal ideas or any endangering feeling arise, the patient should seek assistance including, but not limited to crisis hotline, and emergency room. Assessment: schizophrenia Follow up with: PRIMARY CARE, [Primary Care Provider] - 7 Days Prescriptions: OLANzapine [Zyprexa] 10 mg PO QHS #30 tablet Divalproex [Brigdia Pulliam] 125 mg PO BID #60 tablet
== END 2021-09-04 11:45 | disposition home or self-care (01) | DRG 885 ==
LOC: 3A 11:15 → UNDOADMIN 11:15 → 5A 18:54
PROVIDERS: ADMIT Psychiatry & Neurology Psychiatry; ATTEND Internal Medicine
DX: F20.9 Schizophrenia, unspecified (principal); G44.209 Tension-type headache, unspecified, not intractable; E11.9 Type 2 diabetes mellitus without complications; I10 Essential (primary) hypertension; Z20.822 Contact with and (suspected) exposure to COVID-19; K21.9 Gastro-esophageal reflux disease without esophagitis; E78.5 Hyperlipidemia, unspecified
CPT/HCPCS: 36415; 71045; 80053; 80074; 82962; 83036; 84443; 85025; G0378; J1815